=== PATIENT | female | born 1995 | race Native Hawaiian/Other Pacific Islander ===

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

== ENCOUNTER 2017-12-19 22:09 | Emergency (ER) | payer OTHER ==
[~2017-12-19] VITALS: Ht 160 cm; Wt 75.8 kg
[2017-12-19 23:32] VITALS: BP 120/66; TEMP 98.7
== END 2017-12-19 23:32 | disposition home or self-care (01) ==
LOC: ED 22:09
DX: M94.0 Chondrocostal junction syndrome [Tietze] (principal); R07.89 Other chest pain; R07.81 Pleurodynia; M54.5 Low back pain
CPT/HCPCS: 96372; 99282; J1885

== ENCOUNTER 2018-01-09 16:47 | Emergency (ER) | payer OTHER ==
[~2018-01-09] VITALS: Ht 160 cm; Wt 75.8 kg
[2018-01-09 19:32] VITALS: BP 134/83; TEMP 98
== END 2018-01-09 19:32 | disposition home or self-care (01) ==
LOC: ED 16:47
DX: N73.9 Female pelvic inflammatory disease, unspecified (principal)
CPT/HCPCS: 81000; 81025; 87490; 87590; 99284

== ENCOUNTER 2018-02-04 06:41 | Emergency (ER) | payer OTHER ==
[~2018-02-04] VITALS: Ht 160 cm; Wt 72.6 kg
[2018-02-04 06:50] VITALS: TEMP 97.7
[2018-02-04 08:57] VITALS: BP 117/68
== END 2018-02-04 08:57 | disposition home or self-care (01) ==
LOC: ED 06:41
DX: N39.0 Urinary tract infection, site not specified (principal)
CPT/HCPCS: 81000; 87086; 87088; 96374; 99284; J2270; J2405

== ENCOUNTER 2018-06-27 13:23 | Outpatient (CLI) | payer OTHER | END 2018-06-27 22:47 | disposition home or self-care (01) | LOC: RAD 13:23 | DX: M25.562 Pain in left knee (principal) ==

== ENCOUNTER 2018-07-11 04:55 | Emergency (ER) | payer OTHER ==
[~2018-07-11] VITALS: Ht 160 cm; Wt 77.1 kg
[2018-07-11 05:00] VITALS: TEMP 97.9
[2018-07-11 06:23] LABS: PLATELET COUNT 255 K/uL (152-353)
[2018-07-11 06:32] LABS: POTASSIUM 3.4 mmol/L (3.6-5.2)
[2018-07-11 07:27] VITALS: BP 121/66
== END 2018-07-11 07:27 | disposition home or self-care (01) ==
LOC: ED 04:55
PROVIDERS: Family Medicine
DX: J40 Bronchitis, not specified as acute or chronic (principal); R05 Cough
CPT/HCPCS: 36415; 36600; 80053; 81025; 82805; 85027; 87502; 94664; 99283; J2930

== ENCOUNTER 2018-11-11 13:47 | Emergency (ER) | payer OTHER ==
[~2018-11-11] VITALS: Ht 160 cm; Wt 77.1 kg
[2018-11-11 13:53] VITALS: TEMP 99.5
[2018-11-11 14:38] LABS: PLATELET COUNT 219 K/uL (152-353)
[2018-11-11 14:52] LABS: POTASSIUM 3.4 mmol/L (3.6-5.2)
[2018-11-11 16:20] VITALS: BP 137/69
== END 2018-11-11 16:20 | disposition home or self-care (01) ==
LOC: ED 13:47
PROVIDERS: Family Medicine
DX: O26.91 Pregnancy related conditions, unspecified, first trimester (principal); Z3A.01 Less than 8 weeks gestation of pregnancy; E87.6 Hypokalemia
CPT/HCPCS: 80053; 81000; 84702; 85027; 99283; 99284

== ENCOUNTER 2018-12-23 00:23 | Emergency (ER) | payer OTHER | END 2018-12-23 00:41 | disposition home or self-care (01) | LOC: ED 00:23 | DX: O46.90 Antepartum hemorrhage, unspecified, unspecified trimester (principal) ==

== ENCOUNTER 2019-10-25 14:52 | Outpatient (CLI) | payer OTHER | END 2019-10-25 20:29 | disposition home or self-care (01) | LOC: MRI 14:52 | DX: M54.16 Radiculopathy, lumbar region (principal); M54.5 Low back pain ==

== ENCOUNTER 2020-02-02 18:18 | Emergency (ER) | payer OTHER ==
[~2020-02-02] VITALS: Ht 160 cm; Wt 77.1 kg
[2020-02-02 18:41] VITALS: BP 116/65; TEMP 98.2
== END 2020-02-02 19:43 | disposition home or self-care (01) ==
LOC: ED 18:18
DX: K08.89 Other specified disorders of teeth and supporting structures (principal); K02.9 Dental caries, unspecified; F17.210 Nicotine dependence, cigarettes, uncomplicated
CPT/HCPCS: 99281; J1885

== ENCOUNTER 2020-03-25 13:02 | Outpatient (CLI) | payer OTHER | END 2020-03-25 21:40 | disposition home or self-care (01) | LOC: LAB 13:02 | PROVIDERS: ATTEND Family Medicine | DX: Z20.828 Contact with and (suspected) exposure to other viral communicable diseases (principal) | CPT/HCPCS: 87635; G2023; U0003 ==

== ENCOUNTER 2020-04-08 12:36 | Outpatient (CLI) | payer OTHER | END 2020-04-08 21:59 | disposition home or self-care (01) | LOC: LAB 12:36 | PROVIDERS: ATTEND Family Medicine | DX: Z20.828 Contact with and (suspected) exposure to other viral communicable diseases (principal) | CPT/HCPCS: 87635; G2023; U0003 ==

== ENCOUNTER 2020-04-19 11:44 | Emergency (ER) | payer OTHER ==
[~2020-04-19] VITALS: Ht 160 cm; Wt 72.6 kg
[2020-04-19 14:40] VITALS: BP 121/69; TEMP 97.4
== END 2020-04-19 14:40 | disposition home or self-care (01) ==
LOC: ED 11:44
DX: M54.2 Cervicalgia (principal); M25.512 Pain in left shoulder
CPT/HCPCS: 96372; 99283; J1885

== ENCOUNTER 2020-08-09 10:04 | Outpatient (CLI) | payer OTHER | END 2020-08-09 21:48 | disposition home or self-care (01) | LOC: LAB 10:04 | PROVIDERS: ATTEND Family Medicine | DX: U07.1 COVID-19 (principal); Z20.822 Contact with and (suspected) exposure to COVID-19 | CPT/HCPCS: 87635; G2023; U0003 ==

== ENCOUNTER 2020-08-11 19:44 | Emergency (ER) | payer OTHER ==
[~2020-08-11] VITALS: Ht 160 cm; Wt 72.6 kg
[2020-08-11 19:52] VITALS: TEMP 99.2
[2020-08-11 20:34] LABS: PLATELET COUNT 204 K/uL (152-353)
[2020-08-11 20:53] LABS: POTASSIUM 3.4 mmol/L (3.6-5.2); SODIUM 142 mmol/L (136-145)
[2020-08-11 23:30] VITALS: BP 105/67
== END 2020-08-11 23:30 | disposition home or self-care (01) ==
LOC: ED 19:44
PROVIDERS: Hospitalist
DX: U07.1 COVID-19 (principal); J06.9 Acute upper respiratory infection, unspecified; F17.210 Nicotine dependence, cigarettes, uncomplicated
CPT/HCPCS: 36415; 80053; 82550; 83880; 84484; 85027; 85610; 85730; 87635; 87651; 93005; 96360; 96374; 96375; 99284; J1100; J1885; J2405; U0003

== ENCOUNTER 2020-12-04 23:11 | Emergency (ER) | payer OTHER | END 2020-12-05 00:48 | disposition home or self-care (01) | LOC: ED 23:11 | DX: Z53.21 Procedure and treatment not carried out due to patient leaving prior to being seen by health care provider (principal); R06.02 Shortness of breath; Z20.822 Contact with and (suspected) exposure to COVID-19 | CPT/HCPCS: 99281 ==

== ENCOUNTER 2021-02-27 13:06 | Emergency (ER) | payer OTHER ==
[~2021-02-27] VITALS: Ht 160 cm; Wt 79.4 kg
[2021-02-27 13:55] LABS: PLATELET COUNT 346 K/uL (152-353)
[2021-02-27 13:57] LABS: POTASSIUM 4.2 mmol/L (3.6-5.2)
[2021-02-27 17:45] VITALS: BP 123/82; TEMP 98.1
== END 2021-02-27 17:45 | disposition home or self-care (01) ==
LOC: ED 13:06
PROVIDERS: Emergency Medicine
DX: R10.31 Right lower quadrant pain (principal)
CPT/HCPCS: 80053; 80307; 81000; 81025; 82150; 83690; 85027; 96374; 99284; J1885; Q9963

== ENCOUNTER 2021-09-30 04:14 | Emergency (ER) | payer OTHER ==
[~2021-09-30] VITALS: Ht 160 cm; Wt 81.6 kg
[2021-09-30 05:09] LABS: PLATELET COUNT 220 K/uL (152-353)
[2021-09-30 05:25] LABS: POTASSIUM 3.4 mmol/L (3.6-5.2)
[2021-09-30 06:55] VITALS: BP 107/61; TEMP 98.7
== END 2021-09-30 06:55 | disposition home or self-care (01) ==
LOC: ED 04:14
PROVIDERS: Emergency Medicine Emergency Medical Services
DX: I88.0 Nonspecific mesenteric lymphadenitis (principal); R07.81 Pleurodynia; Z98.890 Other specified postprocedural states
CPT/HCPCS: 36415; 80053; 81002; 81015; 81025; 82150; 83690; 84484; 85027; 85379; 93005; 96360; 96361; 96374; 96375; 99284; J1885; J2270; J2405; Q9963

== ENCOUNTER 2022-05-13 09:07 | Emergency (ER) | payer OTHER ==
[~2022-05-13] VITALS: Ht 160 cm; Wt 81.6 kg
[2022-05-13 09:11] VITALS: TEMP 98.6
[2022-05-13 09:44] LABS: PLATELET COUNT 322 K/uL (152-353)
[2022-05-13 09:57] LABS: POTASSIUM 3.4 mmol/L (3.6-5.2)
[2022-05-13] MEDS ORDERED: POTA20TA4 PO (11:52)
[2022-05-13] MEDS ORDERED: PANTOPRAZOLE 40MG TA PO (11:52)
[2022-05-13] MEDS ORDERED: PROM25SU RE (11:52)
[2022-05-13] MEDS ORDERED: ONDA4TAB3 PO (11:52)
[2022-05-13 12:53] VITALS: BP 130/71
== END 2022-05-13 12:53 | disposition home or self-care (01) ==
LOC: ED 09:07
PROVIDERS: Emergency Medicine Emergency Medical Services
DX: K52.89 Other specified noninfective gastroenteritis and colitis (principal)
CPT/HCPCS: 80053; 81002; 81025; 83690; 83735; 85027; 96361; 96374; 96375; 99284; J1885; J2405; J3490

== ENCOUNTER 2022-05-16 18:24 | Emergency (ER) | payer OTHER ==
[~2022-05-16] VITALS: Ht 160 cm; Wt 81.6 kg
[~2022-05-16 18:24] MED LIST changes: +ONDA4TAB3 PO; +PANTOPRAZOLE 40MG TA PO; +POTA20TA4 PO; +PROM25SU RE
[2022-05-16 19:05] LABS: PLATELET COUNT 363 K/uL (152-353)
[2022-05-16 19:14] LABS: POTASSIUM 3.6 mmol/L (3.6-5.2)
[2022-05-16 20:31] VITALS: BP 137/81; TEMP 98.1
== END 2022-05-16 21:30 | disposition home or self-care (01) ==
LOC: ED 18:24
PROVIDERS: Family Medicine
DX: K52.89 Other specified noninfective gastroenteritis and colitis (principal); R10.84 Generalized abdominal pain
CPT/HCPCS: 36415; 80053; 81000; 81025; 82150; 83690; 85027; 96361; 96374; 96375; 99284; J1885; J2405

== ENCOUNTER 2022-09-17 07:07 | Emergency (ER) | payer OTHER ==
[~2022-09-17] VITALS: Ht 160 cm; Wt 80.7 kg
[2022-09-17 07:11] VITALS: BP 124/79; TEMP 98.1
== END 2022-09-17 08:32 | disposition home or self-care (01) ==
LOC: ED 07:07
DX: S63.501A Unspecified sprain of right wrist, initial encounter (principal); X58.XXXA Exposure to other specified factors, initial encounter; F17.290 Nicotine dependence, other tobacco product, uncomplicated
CPT/HCPCS: 81025; 96372; 99283; J1885

== ENCOUNTER 2022-09-21 13:54 | Outpatient (CLI) | payer OTHER | END 2022-09-21 20:08 | disposition home or self-care (01) | LOC: RAD 13:54 | PROVIDERS: ATTEND Registered Nurse | DX: M79.631 Pain in right forearm (principal) ==